=== PATIENT | female | born 1965 | race Hispanic/Latino ===

== ENCOUNTER 2017-10-24 14:07 | Observation (INO) | payer OTHER ==
[~2017-10-24] VITALS: Ht 157.5 cm; Wt 83.9 kg
[~2017-10-24 14:07] MED LIST: ADVAIR 250-501 EACH INH; BUPROPION HCL150 M4 PO; BUTALB-ACETAMI1 EACH PO; COPAXONE40 MG/1 ML SC; CYANOCOBAL1000 MCG/2 IM; DEXTROAMP-AMPHE10 MG PO; DONEPEZIL HCL10 M1 PO; FLUTICASONE PRO16 GM NASB; GABAPENTIN300 M2 PO; OMEPRAZOLE20 M2 PO; OXYCODONE-ACET1 EACH PO; TRAMADOL HCL50 M1 PO; VITAMIN D250000 UNIT PO; ZOFRAN4 M1 PO
[2017-10-24 14:28] LABS: ABSOLUTE BASOPHIL COUNT 0 /CUMM (0.0-0.2); ABSOLUTE EOSINOPHIL COUNT 0.1 /CUMM (0.0-0.7); ABSOLUTE GRANULOCYTE CT 9.4 /CUMM (1.4-6.5); ABSOLUTE MONOCYTE COUNT 0.4 /CUMM (0.10-0.60); BASOPHIL % 0.3 % (0.0-2.0); EOSINOPHIL % 0.6 % (0-5); GRANULOCYTE % 78.7 % (42.2-75.2); HEMATOCRIT 37.1 % (37-47); MEAN CORPUSCULAR HGB 28.8 PG (27.0-31.0); MEAN CORPUSCULAR HGB CONC 34.4 G/DL (33.0-37.0); MEAN CORPUSCULAR VOLUME 83.6 FL (81.0-99.0); MEAN PLATELET VOLUME 8.2 FL (7.4-10.4); PLATELET COUNT 277 /CUMM (130-400); RBC DISTRIBUTION WIDTH 13.9 % (11.5-14.5); RED BLOOD CELL CT 4.44 /CUMM (4.20-5.40)
--- NOTE | 2017-10-24 18:13 | CT SCAN REPORT ---
EXAMINATION: CT ABDOMEN AND PELVIS WITH CONTRAST CLINICAL INFORMATION: Periumbilical abdominal pain. COMPARISON: Abdominal CT 06/20/2017. TECHNIQUE: Multidetector volumetric imaging was performed of the abdomen and pelvis following IV administration of 95 mL of Optiray 320 intravenous contrast. Sagittal and coronal reformatted images were obtained on the technologist's workstation. FINDINGS: The lung bases are clear. The liver, spleen, adrenal glands, and pancreas are normal. Gallbladder surgically absent. The kidneys exhibit symmetric nephrograms without evidence of hydronephrosis or nephrolithiasis. No focal renal lesions. The large and small bowel are normal in caliber without evidence of mechanical obstruction. There is mild stranding within the fat surrounding the appendix which is mildly enlarged, measuring up to 7 mm in size. Findings are concerning for early acute appendicitis. No periappendiceal abscess and no free air. There is no free air and there is no intra-abdominal free fluid. No mesenteric or retroperitoneal adenopathy. The pelvic viscera are normal. No pelvic adenopathy. No free fluid within the pelvis. There are no acute osseous abnormalities. No significant soft tissue abnormality. IMPRESSION: There is mild stranding within the fat surrounding the appendix which is mildly enlarged, measuring up to 7 mm in size. Findings are concerning for early acute appendicitis. No periappendiceal abscess and no free air.
--- NOTE | 2017-10-24 18:42 | ED GENERAL ADULT ---
History of Present Illness General Chief Complaint: Abdominal Pain/Flank Pain Stated Complaint: ABDOMINAL PAIN X8 HOURS Source: patient Exam Limitations: no limitations Vital Signs & Intake/Output Vital Signs & Intake/Output Vital Signs Date Time Temp Pulse Resp B/P B/P Pulse O2 O2 Flow FiO2 Mean Ox Delivery Rate 10/24 2250 99.1 74 18 90/56 92 Room Air 10/24 1932 Room Air 10/24 1931 68 18 140/75 99 Room Air 10/24 1754 98.8 71 18 140/82 98 Room Air 10/24 1413 98.6 93 17 164/87 97 Room Air ED Intake and Output 10/25 0000 10/24 1200 Intake Total Output Total Balance Patient 185 lb Weight Weight Reported by Patient Measurement Method Allergies Coded Allergies: codeine (HIVES 08/04/15) Reconcile Medications Cyanocobalamin (Vitamin B-12) (Cyanocobalamin Injection) 1,000 MCG/1 ML VIAL 1 ML IM ONCE A WEEK SUPPLEMENT (Reported) Ergocalciferol (Vitamin D2) (Vitamin D2) 50,000 UNIT CAPSULE 1 CAP PO 2XW SUPPLEMENT (Reported) Gabapentin 300 MG CAPSULE 1 CAP PO QHS PRN NERVE PAIN (Reported) Oxycodone HCl/Acetaminophen (Percocet 5-325 MG Tablet) 5 MG-325 MG TABLET 1 TAB PO BID PAIN Triage Note: PT TO ED WITH C/O 8 HOURS OF MID ABD BURNING LIKE PAIN. +NAUSEA WITH NO VOMITING. DENIES CHANGES IN BOWEL OR BLADDER. DENIES FEVERS,CHILLS. Triage Nurses Notes Reviewed? yes HPI: This is a 52-year-old female with history of multiple sclerosis, cholecystitis status post cholecystectomy, presenting to the emergency department with about 8 hours of poorly localized abdominal pain with poor appetite. Patient states she started having the pain this morning, has only had coffee today. States that the pain is migrated now to the area of the right lower quadrant. She denies vomiting, diarrhea. She has had no shortness breath or chest pain. No fever/ chills. No recent travel or suspicious foods. (Herbert MICHAEL,Micky) Past History Travel History Traveled to [place] past 21 day No Medical History Any Pertinent Medical History? see below for history Neurological: multiple sclerosis EENT: NONE Cardiovascular: NONE Respiratory: NONE Gastrointestinal: GERD Hepatic: NONE Renal: NONE Musculoskeletal: NONE Psychiatric: NONE Endocrine: NONE Surgical History Surgical History: cholecystectomy Psychosocial History What is your primary language Latvian Tobacco Use: Never used Family History Hx Contributory? No (Micky Godinez MD) Review of Systems Review of Systems Constitutional: Reports: no symptoms. EENTM: Reports: no symptoms. Respiratory: Reports: no symptoms. Cardiovascular: Reports: no symptoms. GI: Reports: abdominal pain, nausea. Denies: diarrhea, vomiting. Genitourinary: Reports: no symptoms. Musculoskeletal: Reports: no symptoms. Skin: Reports: no symptoms. Neurological/Psychological: Reports: no symptoms. Hematologic/Endocrine: Reports: no symptoms. (Micky Godinez MD) Physical Exam Physical Exam General Appearance: well developed/nourished, no apparent distress, alert, awake , comfortable Head: atraumatic, normal appearance Eyes: Bilateral: normal appearance. Ears, Nose, Throat: normal pharynx, normal ENT inspection Neck: normal inspection, supple, full range of motion Respiratory: normal breath sounds, chest non-tender, no respiratory distress Cardiovascular: regular rate/rhythm Gastrointestinal: soft, tenderness Rectal: deferred Back: normal range of motion Extremities: normal inspection, normal capillary refill Neurologic/Psych: no motor/sensory deficits, awake, alert, oriented x 3, normal gait, normal mood/affect Skin: intact, normal color Comments: Well-appearing middle-aged female, mild tenderness palpation to the right lower quadrant. No rebound, not peritoneal. Core Measures ACS in differential dx? No CVA/TIA Diagnosis: No Sepsis Present: No Sepsis Focused Exam Completed? No (Micky Godinez MD) Progress Differential Diagnoses I considered the following diagnoses in my evaluation of the patient:Acute intra -abdominal infection, low suspicion for acute vascular pathology. Could be gastritis, pancreatitis. Low suspicion for acute related complication. Plan of Care: Orders Procedure Date/time Status Regular Diet 10/25 B Active Vital Signs 10/24 2241 Complete Teach/Educate 10/24 2241 Active Pain Treatment and Response 10/24 2241 Active Nutritional Intake, Monitor 10/24 2241 Active Isolation 10/24 2241 Active Intake & Output 10/24 2241 Complete Patient Care Conference 10/24 2241 Active Activity/Ambulation 10/24 2241 Complete INCENTIVE SPIROMETRY TRX (GEN) 10/24 2136 Active Saline Lock 10/24 2136 Active Pathway - chart 10/[address] in observation 10/24 2136 Active Patient Data 10/24 2136 Active Wound Care/Dressing 10/24 2136 Active Vital Signs 10/24 2136 Active Intake & Output 10/24 2136 Complete Activity/Ambulation 10/24 2136 Complete Code Status 10/24 2136 Active PATHOLOGY SPECIMEN 10/24 2110 Active Intake & Output 10/24 1932 Active URINE 10/24 1929 Complete URINALYSIS 10/[address] in observation 10/24 192 Active FingerStick- Glucose 10/24 1925 Active Add-on Test (ER Only) 10/24 190 Active Code Status 10/24 1857 Complete EKG 10/24 1843 Active PARTIAL THROMBOPLASTIN TIME 10/24 1839 Complete PROTHROMBIN TIME 10/24 1839 Complete TYPE & SCREEN (NOT X-MATCH) 10/24 1839 Complete TROPONIN LEVEL 10/24 1418 Complete HUMAN BETA HCG SCREEN 10/24 1418 Complete LIPASE 10/24 1413 Complete COMPREHENSIVE METABOLIC PANEL 10/24 1413 Complete CBC WITHOUT DIFFERENTIAL 10/24 1413 Complete VTE Mechanical Prophylaxis 10/24 UNK Active Activity/Ambulation 10/24 UNK Active Current Medications Sig/Pierce Start time Last Medication Dose Stop Time Status Admin Metronidazole 500 MG IQ8 10/25 0000 CAN (Flagyl) N/A 1 UNIT (No Carrier) Morphine Sulfate 2 MG Q4P PRN 10/24 2215 AC 10/24 (MORPHINE SULFATE) 2257 Dextrose/Sodium 1,000 ML Q10H 10/24 2144 AC 10/24 Chloride 2256 (D5W-1/2 Normal Saline 1000ML) Ketorolac 30 MG Q6-PRN PRN 10/24 2144 AC Tromethamine (Toradol) Ondansetron HCl 4 MG Q6P PRN 10/24 2144 AC (Zofran) Oxycodone/ 1 TAB Q4P PRN 10/24 2144 AC Acetaminophen (Percocet) Oxycodone/ 2 TAB Q4P PRN 10/24 2144 AC Acetaminophen (Percocet) Laboratory Tests 10/24/172115: Urine Color YEL, Urine Clarity CLEAR, Urine pH 7.0, Ur Specific [place] 1.010, Urine Protein NEG, Urine Ketones NEG, Urine Nitrite NEG, Urine Bilirubin NEG, Urine Urobilinogen 0.2, Ur Leukocyte Esterase NEG, Ur Microscopic EXAM NOT REQUIRED, Urine Hemoglobin NEG, Urine Glucose NEG, Urine Test NEGATIVE 07/16/18 1913: PT 13.0 H, INR 1.19, APTT 32 10/24/17 190: Total Beta HCG Cancelled 10/24/17 1418: Anion Gap 14, Estimated GFR > 60, BUN/Creatinine Ratio 11.4, Glucose 103 H, Calcium 9.7, Total Bilirubin 0.5, AST 17, ALT 29, Alkaline Phosphatase 90, Troponin I < 0.01, Total Protein 7.3, Albumin 4.1, Globulin 3.2, Albumin/ Globulin Ratio 1.3, Lipase 36, Total Beta HCG NEGATIVE, CBC w Diff NO MAN DIFF REQ, RBC 4.44, MCV 83.6, MCH 28.8, MCHC 34.4, RDW 13.9, MPV 8.2, Gran % 78.7 H, Lymphocytes % 16.7 L, Monocytes % 3.7, Eosinophils % 0.6, Basophils % 0.3, Absolute Granulocytes 9.4 H, Absolute Lymphocytes 2.0, Absolute Monocytes 0.4, Absolute Eosinophils 0.1, Absolute Basophils 0 10/24/17 1414: Troponin I Cancelled Prior to my evaluation, patient undergoes labs, CT abdomen. Noted to have mild leukocytosis and early appendicitis. Patient started on ceftriaxone and Flagyl, given IV fluids, Labs sent, surgery paged. Initial ED EKG: normal intervals, normal p-waves, normal QRS complex, normal sinus rhythm, no ST T wave changes (Micky Godinez MD) Departure Departure Time of Disposition: 1844 Disposition: STILL A PATIENT Condition: Stable Clinical Impression Primary Impression: Acute appendicitis Referrals: Gilda MICHAEL,Harvey Marie (PCP/Family) Departure Forms: Customer Survey General Discharge Information Prescriptions: Current Visit Scripts Oxycodone HCl/Acetaminophen (Percocet 5-325 MG Tablet) 1 TAB PO BID #10 TAB Admission Note Documentation of Exam: Documentation of any treatments & extenuating circumstances including Concerns Regarding Discharge (functional status, medication knowledge or non-compliance, living conditions, etc.) that warrant an admission rather than observation: Observation Note Spoke With: Jose Ramon MICHAEL,Evan Hernandez Physician Advisor Notified: MARIA DOLORES SARGENT DO Place Patient In: Non-ED OBS Care Area Rationale for Observation: My rational for observation is as follows Patient will require appendectomy. IV antibiotics, reassessment.. (Micky Godinez MD) Resident Co-Sign Statement Statement: ED Attending supervision documentation- [] I saw and evaluated the patient. I have also reviewed all the pertinent lab results and diagnostic results. I agree with the findings and the plan of care as documented in the Resident's documentation. [X] I have reviewed the ED Record and agree with the Resident's documentation. [] Additions or exceptions (if any) to the Resident's note and plan are summarized below: [] (Alyssa MICHAEL,Harvey Hull) Critical Care Note Critical Care Note Critical Care Time: non-applicable (Herbert MICHAEL,Micky)
--- NOTE | 2017-10-24 19:51 | Admission Core Measures ---
Acute Coronary Syndrome (CM) ACS Core Measures Acute Coronary Syndrome Diagnosis No Congestive Heart Failure (NEW) CHF Core Measures Congestive Heart Failure Diagnosis No Cerebrovascular Accident CVA Core Measures CVA/TIA Diagnosis No Venous Thromboembolism VTE Core Bernard (View Protocol) VTE Risk Factors Surgery No Mechanical VTE Prophylaxis d/t N/A MechProphylax Ordered No VTE Pharm Prophylaxis d/t NA PharmProphylax ordered Problem List As ranked by this Provider includes Assessment & Plan 1. Abdominal pain 2. Acute appendicitis HOME MEDS Home Med List Cyanocobalamin (Vitamin B-12) (Cyanocobalamin Injection) 1,000 MCG/1 ML VIAL 1 ML IM ONCE A WEEK SUPPLEMENT (Reported) Ergocalciferol (Vitamin D2) (Vitamin D2) 50,000 UNIT CAPSULE 1 CAP PO 2XW SUPPLEMENT (Reported) Gabapentin 300 MG CAPSULE 1 CAP PO QHS PRN NERVE PAIN (Reported)
--- NOTE | 2017-10-24 19:51 | History & Physical Pre-Op ---
ZakLisa 10/24/171938: General Information and HPI MD Statement: I have seen and personally examined SRAVANTHI MCKOY and documented this H&P. The patient is a 52 year old F who presented with a patient stated chief complaint of abdominal pain Source of Information: patient Exam Limitations: no limitations History of Present Illness: 52 y/o female presented to the ER with 12 hours of intermittent vague abdominal pain. She woke up in the am feeling nauseous. She had some heartburn that subsided. Throughout the day she had no appetitie. The pain in her stomach became worse and localized to the RLQ. She denies any fevers or chills, nausea no vomting, no constipation or diarrhea. Allergies/Medications Allergies: Coded Allergies: codeine (HIVES 08/04/15) Home Med list Cyanocobalamin (Vitamin B-12) (Cyanocobalamin Injection) 1,000 MCG/1 ML VIAL 1 ML IM ONCE A WEEK SUPPLEMENT (Reported) Ergocalciferol (Vitamin D2) (Vitamin D2) 50,000 UNIT CAPSULE 1 CAP PO 2XW SUPPLEMENT (Reported) Gabapentin 300 MG CAPSULE 1 CAP PO QHS PRN NERVE PAIN (Reported) Compliance With Home Meds: GOOD Past History Medical History Type of Reaction: Hives/Urticaria Neurological: multiple sclerosis EENT: NONE Cardiovascular: NONE Respiratory: NONE Gastrointestinal: GERD Hepatic: NONE Renal: NONE Musculoskeletal: NONE Psychiatric: NONE Endocrine: NONE Surgical History Pertinent Surgical History: cholecystectomy Past Family/Social History Psychosocial History Where Do You Live? Home Smoking Status: Never Smoked ETOH Use: denies use Illicit Drug Use: denies illicit drug use Review of Systems Review of Systems Constitutional: Denies: chills, fever, malaise, weakness. EENTM: Denies: no symptoms. Cardiovascular: Denies: chest pain, palpitations. Respiratory: Denies: cough, short of breath. GI: Reports: abdominal pain, bloating, distention, nausea. Denies: constipation, diarrhea, vomiting. Genitourinary: Denies: no symptoms. Musculoskeletal: Denies: no symptoms. Skin: Denies: no symptoms. Neurological/Psychological: Reports: numbness, paresthesia. Hematologic/Endocrine: Denies: no symptoms. Immunologic/Allergic: Denies: no symptoms. Post Menopausal: Yes Exam & Diagnostic Data Last 24 Hrs of Vital Signs/I&O Vital Signs Date Time Temp Pulse Resp B/P B/P Pulse O2 O2 Flow FiO2 Mean Ox Delivery Rate 10/24 193 Room Air 10/24 1931 68 18 140/75 99 Room Air 10/24 1754 98.8 71 18 140/82 98 Room Air 10/24 1413 98.6 93 17 164/87 97 Room Air Intake & Output 10/24 1600 10/24 0800 10/24 0000 Intake Total Output Total Balance Patient 185 lb Weight Weight Reported by Patient Measurement Method Physical Exam: Patient is alert and oriented 3 in no apparent distress HEENT is within normal limits Chest is clear to auscultation symmetric without rales rhonchi or wheeze Heart is regular rate rhythm without murmurs rubs or gallops Abdomen is rounded with mild distention prior surgical scars from her laparoscopic cholecystectomy She has mild guarding in the right lower quadrant and tenderness to palpation without rebound Positive bowel sounds throughout Bilateral lower extremities show counts are soft distal pulses intact and sensory motor is intact Last 24 Hrs of Labs/Miles: Laboratory Tests 10/24/171912: PT Pending, INR Pending, APTT Pending 10/24/17 190: Total Beta HCG Cancelled 10/24/17 1418: Anion Gap 14, Estimated GFR > 60, BUN/Creatinine Ratio 11.4, Glucose 103 H, Calcium 9.7, Total Bilirubin 0.5, AST 17, ALT 29, Alkaline Phosphatase 90, Troponin I < 0.01, Total Protein 7.3, Albumin 4.1, Globulin 3.2, Albumin/ Globulin Ratio 1.3, Lipase 36, Total Beta HCG NEGATIVE, CBC w Diff NO MAN DIFF REQ, RBC 4.44, MCV 83.6, MCH 28.8, MCHC 34.4, RDW 13.9, MPV 8.2, Gran % 78.7 H, Lymphocytes % 16.7 L, Monocytes % 3.7, Eosinophils % 0.6, Basophils % 0.3, Absolute Granulocytes 9.4 H, Absolute Lymphocytes 2.0, Absolute Monocytes 0.4, Absolute Eosinophils 0.1, Absolute Basophils 0 10/24/17 1414: Troponin I Cancelled Diagnostic Data EKG Results EKG shows normal sinus rhythm as compared to prior EKG CXR Results No chest x-ray Other Results CAT scan of abdomen and pelvis show early appendicitis with zaid-appendiceal edema Assessment/Plan Assessment/Plan: Assessment and plan Patient with early acute appendicitis she has been nothing by mouth since this morning and our plan is to do a laparoscopic appendectomy. Risk alternatives and benefits to the procedure have been discussed and patient will proceed with the above proposed procedure. All questions answered. As Ranked By This Provider Problem List: 1. Abdominal pain 2. Acute appendicitis Copies To: Jose Ramon MICHAEL,Evan Albright MD,Evan Hernandez 10/24/172025: Exam & Diagnostic Data Last 24 Hrs of Vital Signs/I&O Vital Signs Date Time Temp Pulse Resp B/P B/P Pulse O2 O2 Flow FiO2 Mean Ox Delivery Rate 10/24 193 Room Air 10/24 1931 68 18 140/75 99 Room Air 10/24 1754 98.8 71 18 140/82 98 Room Air 10/24 1413 98.6 93 17 164/87 97 Room Air Intake & Output 10/24 1600 10/24 0800 10/24 0000 Intake Total Output Total Balance Patient 185 lb Weight Weight Reported by Patient Measurement Method Attending MD Review Statement Attending Statement Attending MD Statement: examined this patient, discuss w/resident/PA/FLEET SALES ASSOCIATE, reviewed images Attending Assessment/Plan: 52yo woman with MS, GERD, presents with 12 hours progressive abdominal pain and examination c/w appendicitis. CT confirms the diagnosis. PLan for iv abx and prompt laparoscopic appendectomy. informed of risks of surgery including bleeding, infection and agrees to proceed.
[2017-10-24 19:57] LABS: PTT 32 SEC (25-37)
--- NOTE | 2017-10-24 19:58 | Patient Discharge Instructions ---
Discharge Instructions General Discharge Information You were seen/treated for: acute appendicitis You had these procedures: laprascopic appendectomy Watch for these problems: fevers or chills drainage or irritation from the portal sites worsening abdominal pain persistent nausea and vomiting excessive diarrhea or no bowel movements Call Surgeon to remove: wound check Do not soak the wound: Yes Daily wet to dry dressings: No No bath, but you may shower: Yes Other wound care: ok to remove outer dressings tomorrow. leave white steri strips in place. keep incisions clean & dry. Special Instructions: no strenuous activities Diet Continue normal diet: Yes Recommended Diet: Regular Activity Full Activity/No Limits: No Activity Self Limited: Yes Pounds, do NOT lift more than: 10 Other activity limits: no heavy lifting. no strenuous activity. Acute Coronary Syndrome Inclusion Criteria At DC or during hospital stay patient has or had the following: ACS DIAGNOSIS No Discharge Core Measures Meds if any: Prescribed or Continued at Discharge Meds if any: NOT Prescribed or Continued at Discharge Congestive Heart Failure Inclusion Criteria At DC or during hospital stay patient has or had the following: CHF DIAGNOSIS No Discharge Core Measures Meds if any: Prescribed or Continued at Discharge Meds if any: NOT Prescribed or Continued at Discharge Cerebrovascular accident Inclusion Criteria At DC or during hospital stay patient has or had the following: CVA/TIA Diagnosis No Discharge Core Measures Meds if any: Prescribed or Continued at Discharge Meds if any: NOT Prescribed or Continued at Discharge Venous thromboembolism Inclusion Criteria VTE Diagnosis No VTE Type NONE VTE Confirmed by (Test) NONE Discharge Core Measures - Per Current guidelines, there needs to be overlap - treatment for the first 5 days of Warfarin therapy. - If discharged on Warfarin prior to 5 days of - overlap therapy, the patient will need to be - assessed for post discharge needs including - *Post discharge parental anticoagulation - *Warfarin and/or parental anticoagulation education - *Follow up date to check INR post discharge At least 5 days overlap therapy as Inpatient No Meds if any: Prescribed or Continued at Discharge Note: Overlap Therapy is Warfarin and Anticoagulant Meds if any: NOT Prescribed or Continued at Discharge
--- NOTE | 2017-10-24 21:17 | Operative Report ---
Operative/Inv Procedure Report Surgery Date: 10/24/17 Name of Procedure: Laparoscopic appendectomy Pre-Operative Diagnosis: Acute appendicitis Post-Operative Diagnosis: Same Estimated Blood Loss: scant Surgeon/Digital Account Director: Jose Ramon MICHAEL,Evan Hernandez/Lisa ACOSTA Anesthesia: general endotracheal tube Specimens: Appendix Operative/Procedure Note Note: After consent patient is brought to the operating room and laid supine. General anesthesia was obtained his abdomen was prepped and draped. Skin above the umbilicus was after local anesthesia a curvilinear incision made sharply. We dissected through subcutaneous tissues tissues bluntly and identified the fascia. It was grasped with Tamica's and a fasciotomy created sharply. The peritoneum was entered sharply and a blunt [place]azo port was placed. Pneumoperitoneum was achieved. 2, 5 mm ports were placed in the suprapubic region and left lower quadrant, after local anesthesia was instilled and under direct vision the camera. Patient placed in Trendelenburg and rotated towards the left. The abdomen was explored. Appendix was identified in the right lower quadrant. The distal third of the appendix was acutely inflamed with fibrinous exudate. Is no evidence of peritonitis. There is no perforation. The base the appendix was supple and grasped with a [place] clamp. Window in the mesentery was created with [place] dissector. The mesentery and base of the appendix were then serially divided with Endo LIA angel loads. Appendix placed in an Endo Catch bag and cinched up. The right lower quadrant and pelvis were then irrigated with normal saline. Hemostasis was adequate. Ports then removed and appendix delivered and passed off the field. The fascia was closed 0 Vicryl suture. Skin incisions closed with 4-0 Vicryl. Steri-Strips and sterile dressing applied. Sponge and needle counts are correct CC: Gilda MICHAEL,Harvey Marie
[2017-10-24] MEDS ORDERED: PERCOCET 5-3251 EACH PO (21:40)
--- NOTE | 2017-10-24 21:46 | Surg Short-stay <48hrs Dis Sum ---
Visit Information Visit Dates Admission Date: 10/24/17 Discharge Date: 10/25/2017 Surgical Short Stay DC Summary Admission Diagnosis: appendicitis Final Diagnosis: appendicitis Procedure(s): laproscopic appendectomy Summary/Significant Findings: 52 y/o female was admitted to the OR and underwent a Lap Appy by Dr. Albright. She tolarated the procedure well and was admitted to the surgical floor overnight. Throughout her hospital stay her VS have been stable and pain controlled. Her diet was advanced to regular and she voided without difficulty. She is discharged in stable condition Condition at Discharge: stable Discharge Disposition: home or self care Discharge instructions provided to patient/family: Yes Post discharge follow-up plan: [address] Albright Copies to: Jose Ramon MICHAEL,Evan Hernandez
[2017-10-24 22:50] VITALS: BP 90/56
[2017-10-25 06:56] VITALS: BP 114/66
--- NOTE | 2017-10-25 08:43 | PN- General Surgery ---
Subjective Subjective: Patient doing well this am and feels significantly improved. Ambulating, voiding , tolerating clears, and on PO analgesia. No other issues or complaints Objective Vital Signs and I&Os Vital Signs Date Time Temp Pulse Resp B/P B/P Pulse O2 O2 Flow FiO2 Mean Ox Delivery Rate 10/25 0656 97.9 61 18 114/66 96 10/24 2250 99.1 74 18 90/56 92 Room Air 10/24 1932 Room Air 10/24 1931 68 18 140/75 99 Room Air 10/24 1754 98.8 71 18 140/82 98 Room Air 10/24 1413 98.6 93 17 164/87 97 Room Air Intake & Output 10/25 1600 10/25 0800 10/25 0000 10/24 1600 10/24 0800 10/24 0000 Intake Total 1040 Output Total Balance 1040 Intake, IV 800 Intake, Oral 240 Patient 185 lb 185 lb Weight Weight Reported by Patient Measurement Method Current Medications: Current Medications Sig/Pierce Start time Last Medication Dose Route Stop Time Status Admin Ceftriaxone Sodium 0 .STK-MED ONE 10/24 191 DC .ROUTE Ceftriaxone Sodium 1,000 MG ONCE ONE 10/24 1844 DC 10/24 IV 10/24 1845 193 Dextrose/Sodium 1,000 ML Q10H 10/24 2144 AC 10/25 Chloride IV 0631 Ketorolac 30 MG Q6-PRN PRN 10/24 2144 AC 10/25 Tromethamine IV 06 Meperidine HCl 50 MG .STK-MED ONE 10/24 2141 DC IM 10/24 2142 Metronidazole 500 MG IQ8 10/25 0000 CAN N/A 1 UNIT IV Metronidazole 500 MG ONCE ONE 10/24 192 DC 10/24 N/A 1 UNIT IV 10/24 Morphine Sulfate 2 MG Q4P PRN 10/24 2214 AC 10/24 IV 2257 Morphine Sulfate 2 MG Q4P PRN 10/24 2144 DC IV Ondansetron HCl 4 MG Q6P PRN 10/24 2144 AC IV Oxycodone/ 1 TAB Q4P PRN 10/24 2144 AC Acetaminophen PO Oxycodone/ 2 TAB Q4P PRN 10/24 2144 AC 10/25 Acetaminophen PO 0516 Sodium Chloride 1,000 ML BOLUS ONE 10/24 184 DC 10/24 IV 07/16 1944 1931 Sodium Chloride 1,000 ML BOLUS ONE 10/24 1430 DC 10/24 IV 10/24 1529 1652 Results Last 48 Hours of Labs: Laboratory Tests 10/24 10/24 10/24 2116 1913 1908 Chemistry Total Beta HCG Cancelled Coagulation PT (9.4 - 12.5 SEC) 13.0 H INR (0.90 - 1.19) 1.19 APTT (25 - 37 SEC) 32 Urines Urine Color (YEL,AMB,STR) YEL Urine Clarity (CLEAR) CLEAR Urine pH (5.0 - 8.0) 7.0 Ur Specific [place] (1.001 - 1.035) 1.010 Urine Protein (NEG,<30 MG/DL) NEG Urine Ketones (NEG) NEG Urine Nitrite (NEG) NEG Urine Bilirubin (NEG) NEG Urine Urobilinogen (0.1 - 1.0 EU/dl) 0.2 Ur Leukocyte Esterase (NEG) NEG Ur Microscopic EXAM NOT REQUIRED Urine Hemoglobin (NEG) NEG Urine Glucose (N MG/DL) NEG Urine Test NEGATIVE 10/24 10/24 1418 1414 Chemistry Sodium (137 - 145 mmol/L) 141 Potassium (3.5 - 5.1 mmol/L) 4.3 Chloride (98 - 107 mmol/L) 101 Carbon Dioxide (22 - 30 mmol/L) 25 Anion Gap (5 - 16) 14 BUN (7 - 17 mg/dL) 8 Creatinine (0.5 - 1.0 mg/dL) 0.7 Estimated GFR (>60 ml/min) > 60 BUN/Creatinine Ratio (7 - 25 %) 11.4 Glucose (65 - 99 mg/dL) 103 H Calcium (8.4 - 10.2 mg/dL) 9.7 Total Bilirubin (0.2 - 1.3 mg/dL) 0.5 AST (14 - 36 U/L) 17 ALT (9 - 52 U/L) 29 Alkaline Phosphatase (<127 U/L) 90 Troponin I (< 0.11 ng/ml) < 0.01 Cancelled Total Protein (6.3 - 8.2 g/dL) 7.3 Albumin (3.5 - 5.0 g/dL) 4.1 Globulin (1.9 - 4.2 gm/dL) 3.2 Albumin/Globulin Ratio (1.1 - 2.2 %) 1.3 Lipase (23 - 300 U/L) 36 Total Beta HCG (NEGATIVE) NEGATIVE Hematology CBC w Diff NO MAN DIFF REQ WBC (4.8 - 10.8 /CUMM) 12.0 H RBC (4.20 - 5.40 /CUMM) 4.44 Hgb (12.0 - 16.0 G/DL) 12.8 Hct (37 - 47 %) 37.1 MCV (81.0 - 99.0 FL) 83.6 MCH (27.0 - 31.0 PG) 28.8 MCHC (33.0 - 37.0 G/DL) 34.4 RDW (11.5 - 14.5 %) 13.9 Plt Count (130 - 400 /CUMM) 277 MPV (7.4 - 10.4 FL) 8.2 Gran % (42.2 - 75.2 %) 78.7 H Lymphocytes % (20.5 - 51.1 %) 16.7 L Monocytes % (1.7 - 9.3 %) 3.7 Eosinophils % (0 - 5 %) 0.6 Basophils % (0.0 - 2.0 %) 0.3 Absolute Granulocytes (1.4 - 6.5 /CUMM) 9.4 H Absolute Lymphocytes (1.2 - 3.4 /CUMM) 2.0 Absolute Monocytes (0.10 - 0.60 /CUMM) 0.4 Absolute Eosinophils (0.0 - 0.7 /CUMM) 0.1 Absolute Basophils (0.0 - 0.2 /CUMM) 0 Assessment/Plan Assessment/Plan This is a 52 yo female who was found to have acute appendicitis and is pod#1 s/p laparoscopic appendectomy and was admitted as a 23 hr obs and doing well ambulate po pain meds gi/dvt px adv. to regular d/c home today d/c instructions reviewed with the patient case d/w Dr. Albright Problem List: 1. Acute appendicitis 2. S/P appendectomy Core Measures Venous Thromboembolism VTE Risk Factors Surgery No Mechanical VTE Prophylaxis d/t N/A MechProphylax Ordered No VTE Pharm Prophylaxis d/t NA PharmProphylax ordered
--- NOTE | 2017-10-25 08:54 | PN- General Surgery ---
See Addendum Surgical Brief Attending Note Brief Attending Note: DOING WELL. D/C HOME TODAY AFTER MEAL.
== END 2017-10-25 11:45 ==
LOC: ERH 14:07 → 2NB 20:15 → PACUH 21:07 → ENRESERV 21:21 → ENTRNSPT 22:25 → EDTRNSPTSTS 22:26 → EDTRNSPT 22:26 → 2NB 22:35 → CMPTRNSPT 22:43 → ENPENDDIS 10-25 09:34 → 2NB 10-25 11:45
PROVIDERS: Physician Assistant; Student in an Organized Health Care Education/Training Program
DX: K35.80 Unspecified acute appendicitis (principal); G35 Multiple sclerosis; K21.9 Gastro-esophageal reflux disease without esophagitis
CPT/HCPCS: 6040; 36415; 74177; 81003; 81025; 88304; 93005; 93010; 96374; 96375; G0378; J0131; J0696; J1885; J2250; J2405; J3010; J3490; J7042